=== PATIENT | female | born 1945 | race Caucasian/White ===

== ENCOUNTER 2018-01-28 09:14 | Outpatient (CLI) | payer MEDICARE, BC, OTHER ==
--- NOTE | 2018-02-05 15:45 | MMO ---
BILATERAL SCREENING MAMMOGRAM: COMPARISON: Reference is made to prior mammogram exams which date back to January 2014. Examination is interpreted with the assistance of CAD. FINDINGS: There is heterogeneously dense breast parenchyma bilaterally which limits sensitivity of mammography and could obscure underlying pathology. Stable benign-appearing calcifications are present bilateral ly. There is no new dominant mass, suspicious clustering of microcalcifications, or architectural di stortion. IMPRESSION: BI-RADS 2 - benign findings. Routine annual screening mammography is recommended. BIRADS 2: Benign Finding(s) Routine annual screening mammography (for women over age 40) POS: [facility]
== END 2018-01-28 09:15 | disposition home or self-care (01) ==
LOC: SCSMAMMO 09:14
PROVIDERS: ATTEND Family Medicine
DX: Z12.31 Encounter for screening mammogram for malignant neoplasm of breast (principal)
CPT/HCPCS: 77067

== ENCOUNTER 2020-06-24 09:10 | Outpatient (CLI) | payer MEDICARE, BC, OTHER ==
[2020-06-24 17:42] LABS: SARS-CoV-2 PCR by NAA Not Detected (NotDetected)
== END 2020-06-24 09:11 | disposition home or self-care (01) ==
LOC: LABBT 09:10
PROVIDERS: ATTEND Ophthalmology Retina Specialist
DX: Z01.812 Encounter for preprocedural laboratory examination (principal); Z20.822 Contact with and (suspected) exposure to COVID-19
CPT/HCPCS: U0003; U0005; 87635

== ENCOUNTER 2020-06-29 07:30 | Day surgery (SDC) | payer MEDICARE, BC, OTHER ==
[2020-06-28 14:00] VITALS: BMI 28.0
[~2020-06-29 07:30] MED LIST: EPINEPHrine 0.3 MG in Ophthalmic Irrigation Solution 500 ML IRR SCH; Fentanyl 100 MCG/2 ML VIAL ONE; Midazolam HCl 2 mg/2 ml Vial ONE
[2020-06-29] MEDS ORDERED: Phenylephrine 2.5% Ophth Soln 5 ML BOT ONE (07:51)
[2020-06-29] MEDS ORDERED: Cyclopentolate 1% Ophth Drops 15 ML BOT ONE (07:52)
[2020-06-29] MEDS ORDERED: Lidocaine 4% PF 5 ML AMP ONE (09:45)
[2020-06-29] MEDS ORDERED: Maxitrol 0.1% Opth Oint 3.5 GM TUBE ONE (09:45)
[2020-06-29] MEDS ORDERED: Indocyanine Green 25 MG/10 ML VIAL ONE (09:45)
[2020-06-29] MEDS ORDERED: Bupivacaine PF 0.75% SDV 10 ML ONE (09:45)
[2020-06-29] MEDS ORDERED: PROPOFOL 200 MG/20 ML VIAL ONE (09:45)
[2020-06-29] MEDS ORDERED: Triamcinolone 40 MG/ML VIAL ONE (09:45)
== END 2020-06-29 11:00 | disposition home or self-care (01) ==
LOC: SDC 07:30
PROVIDERS: ATTEND Ophthalmology Retina Specialist
PROC: 08T43ZZ Resection of Right Vitreous, Percutaneous Approach (ICD-10-PCS; principal; 2020-06-29)
PROC: 08NE3ZZ Release Right Retina, Percutaneous Approach (ICD-10-PCS; 2020-06-29)
DX: H43.821 Vitreomacular adhesion, right eye (principal); Z79.82 Long term (current) use of aspirin; Z79.899 Other long term (current) drug therapy; Z88.0 Allergy status to penicillin; Z91.018 Allergy to other foods; Z91.02 Food additives allergy status; Z91.040 Latex allergy status
CPT/HCPCS: J0171; J2250; J2704; J3010; J3301; J3490